=== PATIENT | male | born 1975 | race Caucasian/White ===

== ENCOUNTER → 2022-04-20 15:36 | Outpatient (CLI) | payer OTHER, SELFPAY ==
--- NOTE | 2022-04-20 15:39 | DI.MRI.S_ITS ---
PROCEDURE: MR LUMBAR SPINE WO CON INDICATIONS: Spondylosis lumbar region TECHNIQUE: Noncontrast sagittal T1 spin echo and T2 fast echo, sagittal STIR, and T2 fast spin echo through the lumbar spine. In cases with scoliosis, additional coronal T2 fast spin echo may be performed. COMPARISON: None. FINDINGS: Image quality: Excellent. Alignment and Curvature: There is normal bony alignment. Bone Marrow: Marrow is of normal overall signal. No acute vertebral body compression fractures. Spinal Cord: Conus medullaris terminates at the L1 level. Visualized cord demonstrates normal signal and size. Paraspinous Soft Tissues: No paravertebral masses. T12-L1: Moderate disc desiccation and height loss. No canal stenosis. No foraminal stenosis. L1-L2: Moderate disc desiccation and height loss. No canal stenosis. No foraminal stenosis. L2-L3: Normal appearance. L3-L4: Disc height is preserved. Mild facet ligamentum flavum hypertrophy. Mild bilateral neural foraminal stenosis. No canal stenosis. L4-L5: Disc height is preserved. There is a small central posterior disc bulge with a posterior focal high-intensity zone present. No canal stenosis. Mild bilateral neural foraminal stenosis. L5-S1: There is a left lateral T1/T2 hypointense epidural mass which likely represents an extruded disc fragment and measures 0.6 x 1.4 by 0.8 cm (series 5/image 33 and series 7/image 12). This displaces the exiting nerve root laterally to the left. No canal stenosis. Moderate left and mild right foraminal stenosis. IMPRESSION: 1. Findings suspicious for an extruded disc fragment within the left paracentral L5-S1 region. However, contrast enhanced MRI of the lumbar spine is recommended to exclude other extramedullary mass lesions. 2. Moderate left L5-S1 foraminal stenosis. 3. No other significant stenosis or foraminal stenosis of the lumbar spine. Dictated by: Sole Joya M.D. on 04/22/2022 at 11:10 Approved by: Sole Joya M.D. on 04/22/2022 at 11:15
== END ==
PROVIDERS: PCP Family Medicine Sports Medicine; Referring Provider Physical Medicine & Rehabilitation; Visit Provider Physical Medicine & Rehabilitation
DX: M47.816 Spondylosis without myelopathy or radiculopathy, lumbar region (principal); M48.07 Spinal stenosis, lumbosacral region
CPT/HCPCS: 72148

== ENCOUNTER → 2022-05-23 16:59 | Outpatient (CLI) | payer OTHER, SELFPAY ==
--- NOTE | 2022-05-23 17:05 | DI.MRI.S_ITS ---
PROCEDURE: MR LUMBAR SPINE WO/W CON INDICATIONS: L5 TO S1 LUMBAR DISC HERNIATION TECHNIQUE: Noncontrast sagittal T1 spin echo and T2 fast spin echo, sagittal STIR, axial T1 and T2 fast spin echo through the lumbar spine. In cases with scoliosis, additional coronal T2 fast spin echo may be performed. After the administration of contrast, sagittal and axial T1 spin echo with fat saturation through the lumbar spine. COMPARISON: [facility], MR, MR LUMBAR SPINE WO CON, 04/20/2022, 15:58. FINDINGS: Image quality: Excellent, except for the T2 axial sequence which is patient motion. Alignment and curvature: There is normal bony alignment. Marrow: Marrow is of normal overall signal. No acute vertebral body compression fractures. No suspicious marrow enhancement. Spinal cord: Conus medullaris terminates at the L1-L2 level. Visualized spinal cord demonstrates normal signal, without suspicious enhancement. Paraspinous soft tissues: No paravertebral masses or abnormal enhancement. T12-L1: Normal appearance. L1-L2: No canal stenosis or foraminal stenosis. L2-L3: Mild facet hypertrophy. No canal stenosis or foraminal stenosis. L3-L4: Mild facet hypertrophy. No canal stenosis or foraminal stenosis. L4-L5: Annulus tear plus minimal broad-based posterior disc protrusion without significant canal stenosis. Mild facet hypertrophy. No foraminal stenosis. L5-S1: Again noted is a inferior left paracentral disc extrusion with expected peripheral enhancement of the extruded disc material, markedly impinging on the left S1 nerve root in the left lateral recess. Size and appearance of the disc extrusion is not significantly changed. IMPRESSION: 1. Findings are unchanged. 2. The finding at L5-S1 represents a left paracentral disc extrusion which significantly impinges on the left S1 nerve root in the left lateral recess. 3. Annulus tear plus minimal delvis based disc protrusion at L4-L5 without canal stenosis. 4. Mild multilevel facet arthropathy. Dictated by: Rian Cross M.D. on 05/24/2022 at 8:04 Approved by: Rian Cross M.D. on 05/24/2022 at 8:10
== END ==
PROVIDERS: PCP Family Medicine Sports Medicine; Referring Provider Physical Medicine & Rehabilitation; Visit Provider Physical Medicine & Rehabilitation
DX: M51.17 Intervertebral disc disorders with radiculopathy, lumbosacral region; M47.26 Other spondylosis with radiculopathy, lumbar region; M51.16 Intervertebral disc disorders with radiculopathy, lumbar region
CPT/HCPCS: 72158; A9579